=== PATIENT | female | born 2000 | race Hispanic/Latino ===

== ENCOUNTER 2023-09-03 11:11 | Outpatient (CLI) | payer BC, SELFPAY ==
[2023-09-03 12:01] LABS: Hemoglobin A1C 5.4 % (<5.7)
[2023-09-04 11:33] LABS: DHEA-Sulfate 205 mcg/dL (44-286); FSH 6.1 mIU/mL
[2023-09-06 05:34] LABS: Testosterone Total 35 ng/dL (2-45)
[2023-09-07 17:49] LABS: Anti Mullerian Hormone,Female 7.62 ng/mL (1.02-14.63)
[2023-09-10 21:29] LABS: Estradiol, Ultrasensitive 33 pg/mL
== END 2023-09-03 11:12 | disposition home or self-care (01) ==
PROVIDERS: Visit Provider Student in an Organized Health Care Education/Training Program
DX: N91.2 Amenorrhea, unspecified (principal)
CPT/HCPCS: 36415; 82627; 82670; 83001; 83036; 84146; 84403; 84443